=== PATIENT | male | born 1975 | race Caucasian/White ===

== ENCOUNTER 2017-08-07 15:29 | Emergency (ER) | payer SELFPAY ==
[2017-08-07] MEDS ORDERED: DILTIAZEM 5 MG/ML 5ML IVPUSH IVP ONE ×2 (15:45→16:20)
[2017-08-07] MEDS ORDERED: DILTIAZEM HCL* 100 MG ADDVIAL 100 MG in NS(*) 0.9% 100 ML ADDVANT BAG 100 ML IV SCH (15:45)
--- NOTE | 2017-08-07 15:48 | EKG ---
[place] [facility] [place] BRYCE LINDSEY : [id number] MR: [id number] V: [id number] EXAM DATE: ORDERING PHYSICIAN: NICHOLE NICOLE TECHNOLOGIST: BENJI Simms Reason : TACHYCARDIA Blood Pressure : / mmHG Vent. Rate : 160 BPM Atrial Rate : 153 BPM P-R Int : 000 ms QRS Dur : 070 ms QT Int : 294 ms P-R-T Axes : 000 042 062 degrees QTc Int : 479 ms Supraventricular tachycardia Nonspecific ST and T wave abnormality Abnormal ECG No previous ECGs available Confirmed by NICOLE BALTAZAR ([id number]) on 08/07/2017 6:56:31 PM Referred By: Confirmed By:NICOLE BALTAZAR
[2017-08-07] MEDS ORDERED: NS(*) 0.9% 1000 ML BAG 1,000 ML IV ONE (15:50)
[2017-08-07 16:00] LABS: PLATELET COUNT, AUTOMATED 196 K/uL (150-450)
--- NOTE | 2017-08-07 16:01 | ER Report ---
History and Physical Time Seen By MD: 15:35 Hx. of Stated Complaint: PT FEELS HEART FLUTETRING, PRESSURE IN CHEST, TROUBLE CATCHING BREATH (NICHOLE NICOLE DO) HPI/ROS CHIEF COMPLAINT: I am back in afib HISTORY OF PRESENT ILLNESS: PT has long hx of afib > 20 years. PT has had 2 ablations, last being 8 years ago. Pt stopped his atenolol 6 months ago and states he has gone into afib 3 times. Pt has been able convert himself in the past but can not convert this time. Pt felt himself go into a rapid afib around 7pm and has been in it ever since. Pt c/o of feeling sob with chest pressure with the rapid heart rate. Pt is from [employer] and is here visiting/ working for few months. PT does admit to a a few drinks "may be 4 or so" last night with the start of the afib. REVIEW OF SYSTEMS: Constitutional: No fever, no chills. Eyes: No discharge. ENT: No sore throat. Cardiovascular: + chest pain, + palpitations. Respiratory: No cough, no shortness of breath. Gastrointestinal: No abdominal pain, no vomiting. Genitourinary: No hematuria. Musculoskeletal: No back pain. Skin: No rashes. Neurological: No headache. (NICHOLE NICOLE DO) Allergies: Coded Allergies: No Known Drug Allergies (Unverified , 08/07/17) Home Meds Active Scripts Atenolol (ATENOLOL) 50 Mg Tablet, 1 TAB PO QDAY, #90 TAB Prov:NICHOLE NICOLE DO 08/07/17 Past Medical/Surgical History pmhx: afib, htn cad Pshx: cardiac ablation (NICHOLE NICOLE DO) Reviewed Nurses Notes: Yes Old Medical Records Reviewed: No (NICHOLE NICOLE DO) Smoking Status: Current: Some Days Smoker Hx Alcohol Use: Yes (socially) (NICHOLE NICOLE DO) Constitutional Vital Sign - Last 24 Hours 08/07/17 08/07/17 08/07/17 08/07/17 15:29 15:32 15:33 15:33 Temp 98.9 Pulse ??? 95 Resp 18 B/P (MAP) 135/117 (123) 135/117 127/92 (104) Pulse Ox 95 O2 Delivery Room Air 08/07/17 08/07/17 08/07/17 08/07/17 15:34 15:39 15:44 15:54 Pulse 86 156 111 Resp 18 22 25 B/P (MAP) 145/126 (132) 126/97 (107) Pulse Ox 95 97 94 08/07/17 08/07/17 08/07/17 08/07/17 15:59 16:00 16:04 16:09 Pulse 82 101 83 Resp 12 19 14 B/P (MAP) 133/89 (104) 139/87 (104) 124/83 (97) Pulse Ox 95 95 94 08/07/17 08/07/17 08/07/17 08/07/17 16:10 16:14 16:19 16:20 Pulse 96 81 Resp 20 11 B/P (MAP) 133/81 (98) 119/88 (98) Pulse Ox 92 94 08/07/17 08/07/17 08/07/17 08/07/17 16:24 16:25 16:29 16:30 Pulse 109 83 Resp 16 14 B/P (MAP) 108/83 (91) 132/94 (107) Pulse Ox 95 93 08/07/17 08/07/17 08/07/17 08/07/17 16:34 16:39 16:40 16:44 Pulse 81 87 92 Resp 10 12 15 B/P (MAP) ???/??? (6093) Pulse Ox 96 95 96 08/07/17 08/07/17 08/07/17 08/07/17 16:49 16:50 16:54 16:59 Pulse 77 78 80 Resp 8 14 11 B/P (MAP) 135/96 (109) Pulse Ox 94 96 95 08/07/17 08/07/17 08/07/17 08/07/17 17:00 17:04 17:09 17:14 Pulse 78 72 66 Resp 9 18 21 B/P (MAP) 132/97 (109) Pulse Ox 94 96 95 08/07/17 08/07/17 08/07/17 08/07/17 17:20 17:29 17:30 17:40 Pulse 72 Resp 14 B/P (MAP) 133/96 (108) 133/92 (106) 145/98 (114) Pulse Ox 95 08/07/17 08/07/17 08/07/17 08/07/17 17:44 17:50 17:56 17:59 Pulse 76 75 Resp 14 14 B/P (MAP) ???/??? (1665) 134/97 (109) Pulse Ox 96 95 08/07/17 08/07/17 08/07/17 08/07/17 18:00 18:08 18:10 18:14 Pulse 69 Resp 15 B/P (MAP) 139/93 (108) 127/94 (105) 129/90 (103) Pulse Ox 96 08/07/17 08/07/17 08/07/17 08/07/17 18:20 18:25 18:30 18:40 Pulse 62 ??? Resp 10 15 B/P (MAP) 129/95 (106) 128/99 (109) Pulse Ox 93 93 08/07/17 18:52 Temp 97.2 Intake and Output 08/07/17 08/07/17 08/08/17 15:00 23:00 07:00 Intake Total 2030 ml Balance 2030 ml (ALISON SMITH MD) Physical Exam General Appearance: The patient is alert, has no immediate need for airway protection and no signs of toxicity. Eyes: Pupils equal and round no pallor or injection, EOMI ENT: no pharyngeal erythema or exudates, Mucous membranes are moist Respiratory: There are no retractions, lungs are clear to auscultation. Cardiovascular: irregular rate and rhythm. pulses are equal and symmetrical Gastrointestinal: Abdomen is soft and non tender, no masses, bowel sounds normal, no guarding, no rigidity or rebound Neurological: Cranial nerves II-XII grossly intact, no sensory or motor loss Skin: Warm and dry, no rashes. Musculoskeletal: Neck is supple non tender, no vertebral tenderness Extremities are nontender, non swollen and have full range of motion. DIFFERENTIAL DIAGNOSIS: After history and physical exam differential diagnosis was considered for electrolyte abnl, dehydration, medication non compliance, acs (LAURORA,NICHOLE V DO) Medical Decision Making Data Points Result Diagram: 08/07/17 1543 08/07/17 1543 Laboratory Hematology Test 08/07/17 15:43 Red Blood Count 5.75 M/uL (4.00-5.60) Mean Corpuscular Volume 91.9 fL (80.0-96.0) Mean Corpuscular Hemoglobin 33.2 pg (26.0-33.0) Mean Corpuscular Hemoglobin Concent 36.1 g/dL (32.0-36.0) Red Cell Distribution Width 12.6 % (11.5-14.5) Mean Platelet Volume 9.6 fL (7.2-11.1) Neutrophils (%) (Auto) 56.2 % (39.4-72.5) Lymphocytes (%) (Auto) 31.8 % (17.6-49.6) Monocytes (%) (Auto) 9.8 % (4.1-12.4) Eosinophils (%) (Auto) 1.6 % (0.4-6.7) Basophils (%) (Auto) 0.6 % (0.3-1.4) Nucleated RBC Relative Count (auto) 0.3 /100WBC Neutrophils # (Auto) 4.5 K/uL (2.0-7.4) Lymphocytes # (Auto) 2.5 K/uL (1.3-3.6) Monocytes # (Auto) 0.8 K/uL (0.3-1.0) Eosinophils # (Auto) 0.1 K/uL (0.0-0.5) Basophils # (Auto) 0.1 K/uL (0.0-0.1) Nucleated RBC Absolute Count (auto) 0.03 K/uL Prothrombin Time 14.1 seconds (12.0-14.4) Prothromb Time International Ratio 1.08 Activated Partial Thromboplast Time 27 seconds (23-35) Sodium Level 142 mmol/L (137-145) Potassium Level 3.4 mmol/L (3.5-5.0) Chloride Level 105 mmol/L (98-107) Carbon Dioxide Level 18 mmol/L (22-30) Blood Urea Nitrogen 9 mg/dl (9-21) Creatinine 1.30 mg/dl (0.66-1.25) Glomerular Filtration Rate Calc > 60.0 Random Glucose 120 mg/dl (75-110) Calcium Level 9.2 mg/dl (8.4-10.2) Magnesium Level 1.8 mg/dl (1.7-2.2) Total Bilirubin 2.6 mg/dl (0.2-1.3) Aspartate Amino Transf (AST/SGOT) 55 U/L (0-35) Alanine Aminotransferase (ALT/SGPT) 94 U/L (0-56) Alkaline Phosphatase 71 U/L (0-126) Troponin I < 0.012 ng/ml Total Protein 7.8 gm/dl (6.3-8.2) Albumin 4.4 g/dl (3.5-5.0) Chemistry Test 08/07/17 15:43 White Blood Count 7.9 k/uL (4.5-11.0) Red Blood Count 5.75 M/uL (4.00-5.60) Hemoglobin 19.1 g/dL (14.0-18.0) Hematocrit 52.8 % (42.0-52.0) Mean Corpuscular Volume 91.9 fL (80.0-96.0) Mean Corpuscular Hemoglobin 33.2 pg (26.0-33.0) Mean Corpuscular Hemoglobin Concent 36.1 g/dL (32.0-36.0) Red Cell Distribution Width 12.6 % (11.5-14.5) Platelet Count 196 K/uL (150-450) Mean Platelet Volume 9.6 fL (7.2-11.1) Neutrophils (%) (Auto) 56.2 % (39.4-72.5) Lymphocytes (%) (Auto) 31.8 % (17.6-49.6) Monocytes (%) (Auto) 9.8 % (4.1-12.4) Eosinophils (%) (Auto) 1.6 % (0.4-6.7) Basophils (%) (Auto) 0.6 % (0.3-1.4) Nucleated RBC Relative Count (auto) 0.3 /100WBC Neutrophils # (Auto) 4.5 K/uL (2.0-7.4) Lymphocytes # (Auto) 2.5 K/uL (1.3-3.6) Monocytes # (Auto) 0.8 K/uL (0.3-1.0) Eosinophils # (Auto) 0.1 K/uL (0.0-0.5) Basophils # (Auto) 0.1 K/uL (0.0-0.1) Nucleated RBC Absolute Count (auto) 0.03 K/uL Prothrombin Time 14.1 seconds (12.0-14.4) Prothromb Time International Ratio 1.08 Activated Partial Thromboplast Time 27 seconds (23-35) Glomerular Filtration Rate Calc > 60.0 Calcium Level 9.2 mg/dl (8.4-10.2) Magnesium Level 1.8 mg/dl (1.7-2.2) Total Bilirubin 2.6 mg/dl (0.2-1.3) Aspartate Amino Transf (AST/SGOT) 55 U/L (0-35) Alanine Aminotransferase (ALT/SGPT) 94 U/L (0-56) Alkaline Phosphatase 71 U/L (0-126) Troponin I < 0.012 ng/ml Total Protein 7.8 gm/dl (6.3-8.2) Albumin 4.4 g/dl (3.5-5.0) Coagulation Test 08/07/17 15:43 Prothrombin Time 14.1 seconds Prothromb Time International Ratio 1.08 Activated Partial Thromboplast Time 27 seconds (ALISON SMITH MD) EKG/Imaging EKG Interpretation afib/flutter @ 160 (NICHOLE NICOLE DO) EKG Interpretation 12 lead EKG: Rhythm: Sinus bradycardia rate 55 [place]: normal QRS: normal ST segments: normal (ALISON SMITH MD) ED Course/Re-evaluation Clinical Indication for ER IV: Hydration, IV Access ED Course Will start on cardizem drip in ED with hopes of pt converting on his own. Will start with 1/2 dose bolus .125mg due to pts blood pressure and if tolerates will give the second half. Drip to be started. 08/07/2017 4:14:39 pm Pt on drip. Blood pressure in holding and rate is down to 99-120 will give second dose of bolus. 08/07/2017 4:31:20 pm Pt heart rate down to 88-98 but still irregular. PT does not want to be admitted. Will replace his potassium. Will continue on drip and continue to monitor. 08/07/2017 5:08:58 pm Pts heart rate is no longer tachy but still in afib. cxr is stable. PT is dehydrated by labs so second liter of fluid hanging. 08/07/2017 5:50:55 pm Pts heart rate down in 70s but still has not converted. PTs symptoms have resolved no longer sob or cp since the heart rate went down to normal . Pt does not want to be admitted. PT does not have insurance. States he will fill a script for atenolol 50mg (his prior dose) if we supply him a script. Discussed my concern for possible stroke since not on any blood thinners but pt states that he is avoiding coumadin or its counter parts. Pt is willing to take a full asa. Will give a dose of pts atenolol now and monitor. Critical Care Time I spent a total of 30 minutes of critical care time in obtaining history, performing a physical exam, bedside monitoring of interventions, collecting and interpreting tests and discussion with consultants but not including time spent performing procedures. (NICHOLE NICOLE DO) ED Course After the Cardizem drip, the patient is back in a normal sinus rhythm, sometimes sinus bradycardia. He is scheduled to begin atenolol 50 mg once a day again which she has been on in the past. Also started a full dose aspirin again. Decision to Disposition Date: Aug 07, 2017 Decision to Disposition Time: 18:38 (ALISON SMITH MD) Depart Departure Latest Vital Signs Vital Signs Date Time Temp Pulse Resp B/P (MAP) Pulse Ox O2 Delivery O2 Flow Rate FiO2 08/07/17 18:52 97.2 08/07/17 18:40 ??? 15 93 08/07/17 18:30 128/99 (109) 08/07/17 15:33 Room Air (ALISON SMITH MD) Impression: Primary Impression: Hypokalemia Additional Impressions: Atrial fibrillation with rapid ventricular response Dehydration Condition: Improved Disposition: HOME OR SELF-CARE Referrals: EVERETT ERNANDEZ MD, TODD MD New Scripts Atenolol (ATENOLOL) 50 Mg Tablet 1 TAB PO QDAY, #90 TAB Prov: KATIELIZNICHOLE DO 08/07/17 Patient Instructions: A-fib (Atrial Fibrillation) (GEN) Additional Instructions: You are in an irregular rhythm. Recommend you follow up with cardiology. If you decide to stay local I have provided you with a name of photography colorist for either [place] or [place]. You should restart your atenolol 50mg daily. You need to take a daily aspirin 325mg. You are at risk for stroke so it is important you follow up. Please return to emergency department if you have any concerns. Problem Qualifiers NICHOLE NICOLE DO Aug 07, 2017 16:00 ALISON SMITH MD Aug 07, 2017 18:22
[2017-08-07 16:10] LABS: INR 1.08
[2017-08-07] MEDS ORDERED: POTASSIUM CHL PWDR 20 MEQ PKT PO ONE (16:20)
[2017-08-07] MEDS ORDERED: LR(*) 1000 ML BAG 1,000 ML IV ONE (16:35)
[2017-08-07] MEDS ORDERED: MAGNESIUM SUL/D5W* 1 GM/100 ML 100 ML IVPB ONE (16:50)
[2017-08-07] MEDS ORDERED: ASPIRIN 325 MG TAB PO ONE (16:55)
--- NOTE | 2017-08-07 17:01 | RADIOLOGY IMAGING REPORT ---
[place] [facility] [place]: Erik Mccann : 1975 MR: [id number] V: [id number] EXAM DATE: ORDERING PHYSICIAN: NICHOLE NICOLE TECHNOLOGIST: Location: [facility] Patient: Erik Mccann : 1975 Visit/Account:[id number] Date of Sevice: 08/07/2017 Examination: CHEST SINGLE AP Comparison: None. History: Shortness of breath and chest pain. Findings: No consolidation, nodule, or peribronchial inflammation. No pneumothorax, edema, or effusio n. Cardiac and hilar contour size is within normal limits. Osseous structures are intact. IMPRESSION: Negative chest. Report Dictated By: Bartolo Root MD at 08/07/2017 4:56 PM Report E-Signed By: Bartolo Root MD at 08/07/2017 4:57 PM WSN:[id number]
[2017-08-07] MEDS ORDERED: ATEN-1 PO (17:56)
[2017-08-07] MEDS ORDERED: ATENOLOL 50 MG TAB PO ONE (18:00)
--- NOTE | 2017-08-07 18:24 | EKG ---
FACILITY: [facility] - [place] PATIENT NAME: BRYCE LINDSEY : [id number] MR: [id number] V: [id number] EXAM DATE: ORDERING PHYSICIAN: NICHOLE NICOLE TECHNOLOGIST: BENJI Simms Reason : REPEAT Blood Pressure : / mmHG Vent. Rate : 055 BPM Atrial Rate : 055 BPM P-R Int : 192 ms QRS Dur : 074 ms QT Int : 404 ms P-R-T Axes : 013 018 032 degrees QTc Int : 386 ms Sinus bradycardia Otherwise normal ECG When compared with ECG of 07-AUG-2017 15:35, Vent. rate has decreased BY [address] no longer elevated in Inferior leads Nonspecific T wave abnormality, improved in Lateral leads Confirmed by NICOLE BALTAZAR ([id number]) on 08/07/2017 6:56:24 PM Referred By: Confirmed By:NICOLE BALTAZAR
[2017-08-07 18:30] VITALS: BP 128/99
== END 2017-08-07 18:53 | disposition home or self-care (01) ==
LOC: ER 15:40
DX: E87.6 Hypokalemia (principal); I48.91 Unspecified atrial fibrillation; E86.0 Dehydration
CPT/HCPCS: 71045; 83735; 84484; 85025; 85610; 85730; 93005; 96365; 96366; 96368; 96375; 96376; 99291; J3475; J3490; J7030; J7050; J7120; 82040; 82247; 82310; 82374; 82435; 82565; 82947; 84075; 84132; 84155; 84295; 84450; 84460; 84520; 99284

== ENCOUNTER → 2017-09-29 | Outpatient (REF) | payer SELFPAY ==
[~2017-09-29] MED LIST: ATEN-1 PO
[2017-09-29 15:17] LABS: PLATELET COUNT, AUTOMATED 148 K/uL (150-450)
== END ==
PROVIDERS: ATTEND Nurse Practitioner Family
DX: R06.02 Shortness of breath (principal)
CPT/HCPCS: 82040; 82247; 82310; 82374; 82435; 82565; 82947; 84075; 84132; 84155; 84295; 84450; 84460; 84520; 85025; 85379

== ENCOUNTER 2018-02-21 19:28 | Inpatient (IN) | payer SELFPAY ==
[~2018-02-21] VITALS: Ht 188 cm; Wt 115.7 kg
[~2018-02-21 19:28] MED LIST changes: -WARF5TAB23 PO
--- NOTE | 2018-02-21 19:33 | ER Report ---
History and Physical Time Seen By MD: 19:33 HPI/ROS CHIEF COMPLAINT: atrial fibrillation HISTORY OF PRESENT ILLNESS: This is a 42 year old male. He was incarcerated recently for outstanding warrant in [place]. He has a history of intermittent at rial fibrillation. He has had cardioversions in the past and has been admitted on cardizem as well. Has felt heart skipping this afternoon, but unsure how long he has been in this rhythm. He has no chest pain or shortness of breath with this. He has no recent illnesses. No use of blood thinners at this time, and has had a TIA in the past. He has used marijuana last week, but denies other drug use. No caffeine or other stimulants at this time REVIEW OF SYSTEMS: Constitutional: No fever or chills. Eyes: No vision changes. ENT: No sore throat. No congestion. Cardiovascular: As above. Respiratory: No cough. Gastrointestinal: No abdominal pain. No nausea or vomiting. Genitourinary: No dysuria. Musculoskeletal: No pain. Skin: No rashes. Neurological: No numbness. No weakness. Allergies: Coded Allergies: No Known Drug Allergies (Unverified , 02/21/18) Home Meds Discontinued Scripts Atenolol (ATENOLOL) 50 Mg Tablet, 1 TAB PO QDAY, #90 TAB Prov:KATIELIZNICHOLESA Suresh VUONG 08/07/17 Reviewed Nurses Notes: Yes Smoking Status: Current: Some Days Smoker Hx Substance Use Disorder: No (WEED) Hx Alcohol Use: Yes (socially) Constitutional Vital Sign - Last 24 Hours 02/21/18 02/21/18 02/21/18 02/21/18 19:40 19:41 19:45 20:00 Temp 98.0 Pulse 151 88 142 Resp 20 14 13 B/P (MAP) 119/99 (106) 119/99 119/103 (108) Pulse Ox 95 96 02/21/18 02/21/18 02/21/18 02/21/18 20:15 20:30 20:45 21:00 Pulse 170 154 127 90 Resp 23 11 12 15 B/P (MAP) 135/97 (110) Pulse Ox 94 92 02/21/18 02/21/18 02/21/18 02/21/18 21:15 21:30 21:45 22:00 Pulse 85 101 123 111 Resp 12 15 20 B/P (MAP) 139/88 (105) Pulse Ox 93 93 94 94 02/21/18 02/21/18 02/21/18 02/21/18 22:15 22:30 22:45 23:02 Pulse 124 106 87 Resp 19 13 16 B/P (MAP) 113/91 (98) 97/77 (84) Pulse Ox 93 91 92 02/21/18 23:15 Pulse 89 Resp 19 Pulse Ox 93 Intake and Output 02/21/18 02/21/18 02/22/18 14:59 22:59 06:59 Intake Total 1000 ml Balance 1000 ml Physical Exam General Appearance: The patient is alert. No acute distress. Eyes: Pupils are equal, round. No pallor, injection or icterus. ENT: Mucous membranes are moist. Normal oral mucosa. Posterior oropharynx is normal. Neck: Supple and non tender. Respiratory: Lungs are clear to auscultation. Cardiovascular: Irregular rhythm and rapid rate. No carotid bruits. No murmurs. Gastrointestinal: Abdomen is soft and non tender. Nondistended. Normal active bowel sounds. Neurological: Alert and oriented x3. No focal neurologic deficits Skin: Warm and dry. Musculoskeletal: Extremities are nontender. No tenderness in palpation of the cervical, thoracic and lumbar spine. DIFFERENTIAL DIAGNOSIS: After history and physical exam, differential diagnosis was considered for atrial fibrillation with rapid ventricular rate. Medical Decision Making Data Points Result Diagram: 02/21/18192902/21/181929 Laboratory Hematology Test 02/21/18 19:30 Red Blood Count 5.56 M/uL (4.00-5.60) Mean Corpuscular Volume 96.2 fL (80.0-96.0) Mean Corpuscular Hemoglobin 33.9 pg (26.0-33.0) Mean Corpuscular Hemoglobin Concent 35.2 g/dL (32.0-36.0) Red Cell Distribution Width 12.1 % (11.5-14.5) Mean Platelet Volume 9.7 fL (7.2-11.1) Neutrophils (%) (Auto) 60.6 % (39.4-72.5) Lymphocytes (%) (Auto) 27.2 % (17.6-49.6) Monocytes (%) (Auto) 11.1 % (4.1-12.4) Eosinophils (%) (Auto) 0.7 % (0.4-6.7) Basophils (%) (Auto) 0.4 % (0.3-1.4) Nucleated RBC Relative Count (auto) 0.1 /100WBC Neutrophils # (Auto) 6.3 K/uL (2.0-7.4) Lymphocytes # (Auto) 2.8 K/uL (1.3-3.6) Monocytes # (Auto) 1.1 K/uL (0.3-1.0) Eosinophils # (Auto) 0.1 K/uL (0.0-0.5) Basophils # (Auto) 0.0 K/uL (0.0-0.1) Nucleated RBC Absolute Count (auto) 0.01 K/uL D-Dimer Quantitative (PE/DVT) < 0.27 ug/ml (0-0.50) Sodium Level 138 mmol/L (137-145) Potassium Level 3.5 mmol/L (3.5-5.0) Chloride Level 103 mmol/L (98-107) Carbon Dioxide Level 22 mmol/L (22-30) Blood Urea Nitrogen 12 mg/dl (9-21) Creatinine 1.00 mg/dl (0.66-1.25) Glomerular Filtration Rate Calc > 60.0 Random Glucose 95 mg/dl (75-110) Calcium Level 9.4 mg/dl (8.4-10.2) Total Bilirubin 1.6 mg/dl (0.2-1.3) Aspartate Amino Transf (AST/SGOT) 59 U/L (0-35) Alanine Aminotransferase (ALT/SGPT) 101 U/L (0-56) Alkaline Phosphatase 53 U/L (0-126) Total Protein 7.9 g/dl (6.3-8.2) Albumin 4.5 g/dl (3.5-5.0) Chemistry Test 02/21/18 19:30 White Blood Count 10.4 k/uL (4.5-11.0) Red Blood Count 5.56 M/uL (4.00-5.60) Hemoglobin 18.8 g/dL (14.0-18.0) Hematocrit 53.4 % (42.0-52.0) Mean Corpuscular Volume 96.2 fL (80.0-96.0) Mean Corpuscular Hemoglobin 33.9 pg (26.0-33.0) Mean Corpuscular Hemoglobin Concent 35.2 g/dL (32.0-36.0) Red Cell Distribution Width 12.1 % (11.5-14.5) Platelet Count 208 K/uL (150-450) Mean Platelet Volume 9.7 fL (7.2-11.1) Neutrophils (%) (Auto) 60.6 % (39.4-72.5) Lymphocytes (%) (Auto) 27.2 % (17.6-49.6) Monocytes (%) (Auto) 11.1 % (4.1-12.4) Eosinophils (%) (Auto) 0.7 % (0.4-6.7) Basophils (%) (Auto) 0.4 % (0.3-1.4) Nucleated RBC Relative Count (auto) 0.1 /100WBC Neutrophils # (Auto) 6.3 K/uL (2.0-7.4) Lymphocytes # (Auto) 2.8 K/uL (1.3-3.6) Monocytes # (Auto) 1.1 K/uL (0.3-1.0) Eosinophils # (Auto) 0.1 K/uL (0.0-0.5) Basophils # (Auto) 0.0 K/uL (0.0-0.1) Nucleated RBC Absolute Count (auto) 0.01 K/uL D-Dimer Quantitative (PE/DVT) < 0.27 ug/ml (0-0.50) Glomerular Filtration Rate Calc > 60.0 Calcium Level 9.4 mg/dl (8.4-10.2) Total Bilirubin 1.6 mg/dl (0.2-1.3) Aspartate Amino Transf (AST/SGOT) 59 U/L (0-35) Alanine Aminotransferase (ALT/SGPT) 101 U/L (0-56) Alkaline Phosphatase 53 U/L (0-126) Total Protein 7.9 g/dl (6.3-8.2) Albumin 4.5 g/dl (3.5-5.0) Coagulation Test 02/21/18 19:30 D-Dimer Quantitative (PE/DVT) < 0.27 ug/ml EKG/Imaging EKG Interpretation 12 lead EKG: Rhythm: Atrial fibrillation with rapid ventricular response, rate 151 [place]: normal QRS: normal ST segments: Nonspecific Imaging Study: Single portable view of the chest. Indication: Atrial fibrillation Comparison study: August 07, 2017 Technique: Single AP view of the chest demonstrates no evidence of acute infiltrate. There is no evidence of pleural effusion or pneumothorax. The mediastinal, cardiac, and diaphragmatic contours are unremarkable. IMPRESSION: Unremarkable chest. Report Dictated By: Danilo Avery at 02/21/2018 8:26 PM ED Course/Re-evaluation Clinical Indication for ER IV: Hydration, IV Access ED Course Initial bolus of 25mg of Diltiazem, without change. Started Diltiazem drip and titrated up to 20mg/hr with some slowing, but not enough. Still without major symptoms. Discussed with Dr. Choi and recommended admission for further treatment. Decision to Disposition Date: Feb 21, 2018 Decision to Disposition Time: 23:02 Depart Departure Latest Vital Signs Vital Signs Date Time Temp Pulse Resp B/P (MAP) Pulse Ox O2 Delivery O2 Flow Rate FiO2 02/21/18 23:15 89 19 93 02/21/18 23:02 97/77 (84) 02/21/18 19:41 98.0 Impression: Primary Impression: Atrial fibrillation with rapid ventricular response Condition: Condition Unchanged Disposition: Admitted from ER New Scripts No Active Prescriptions or Reported Meds ALISON SMITH MD Feb 21, 2018 19:33
[2018-02-21] MEDS ORDERED: NS(*) 0.9% 1000 ML BAG 1,000 ML IV ONE (19:55)
[2018-02-21] MEDS ORDERED: DILTIAZEM 5 MG/ML 5ML IVPUSH IVP ONE (19:55)
[2018-02-21 20:09] LABS: PLATELET COUNT, AUTOMATED 208 K/uL (150-450)
--- NOTE | 2018-02-21 20:30 | RADIOLOGY IMAGING REPORT ---
FACILITY: [facility] - [place] PATIENT NAME: Erik Mccann : 1975 MR: [id number] V: [id number] EXAM DATE: ORDERING PHYSICIAN: ALISON SMITH TECHNOLOGIST: Location: [facility] Patient: Erik Mccann : 1975 Visit/Account:[id number] Date of Sevice: 02/21/2018 Study: Single portable view of the chest. Indication: Atrial fibrillation Comparison study: August 07, 2017 Technique: Single AP view of the chest demonstrates no evidence of acute infiltrate. There is no evid ence of pleural effusion or pneumothorax. The mediastinal, cardiac, and diaphragmatic contours are un remarkable. IMPRESSION: Unremarkable chest. Report Dictated By: Danilo Avery at 02/21/2018 8:26 PM Report E-Signed By: Danilo Avery at 02/21/2018 8:26 PM WSN:[id number]
[2018-02-21] MEDS: DILTIAZEM HCL* 100 MG ADDVIAL 100 MG in NS(*) 0.9% 100 ML ADDVANT BAG 100 ML IV SCH (21:58)
--- NOTE | 2018-02-21 22:03 | EKG ---
FACILITY: [facility] PATIENT NAME: BRYCE LINDSEY : [id number] MR: [id number] V: [id number] EXAM DATE: ORDERING PHYSICIAN: ALISON SMITH TECHNOLOGIST: MARKO Test Reason : CP Blood Pressure : / mmHG Vent. Rate : 151 BPM Atrial Rate : 150 BPM P-R Int : 000 ms QRS Dur : 072 ms QT Int : 258 ms P-R-T Axes : 000 070 244 degrees QTc Int : 408 ms Atrial fibrillation with rapid ventricular response Nonspecific ST findings Abnormal ECG Confirmed by KRISTEN ARAGON ([id number]) on 02/22/2018 5:41:41 AM Referred By: Confirmed By:KRISTEN ARAGON
[2018-02-21 23:44] VITALS: BP 115/74
[2018-02-22] VITALS (13 sets, daily range): BP systolic 94–142; BP diastolic 66–95; Ht 188 cm; Wt 115.7 kg
[2018-02-22] MEDS ORDERED: DIGOXIN 0.5 MG/2 ML AMP IVP ONE ×2 (00:15→08:25)
[2018-02-22] MEDS ORDERED: NS(*) 0.9% 1000 ML BAG 1,000 ML IV PRN ×2 (00:15→07:48)
[2018-02-22] MEDS ORDERED: ACETAMINOPHEN 325 MG TAB PO PRN (00:15)
[2018-02-22] MEDS ORDERED: INFLUENZA VIRUS VAC 0.5ML SYR IM ONLY ONE (00:15)
--- NOTE | 2018-02-22 00:38 | History & Physical ---
History of Present Illness Chief Complaint Heart racing History of Present Illness 42yo male with PMHx significant for recurrent atrial fibrillation. He states he began having episodes of a-fib with RVR in his mid-20s. He has been hospitalized on multiple occasions with it. He has even had two attempts at ablation, which were unsuccessful. He reports he can usually feel when he goes into a-fib, but is uncertain exactly when this episode began. He denies any CP or significant dyspnea, but is aware of palpitations. He denies any focal neurologic complaints. He did state he had a "TIA" associated with one of his episodes several years ago. He is not currently on any medications for rate control or anticoagulation as an outpatient. He is incarcerated at [facility] at this time. History Problems: (1) CHRONIC ATRIAL FIBRILLATION Status: Chronic (2) Status post ablation of atrial fibrillation Status: Resolved (3) HTN (hypertension) Status: Chronic Home Meds Discontinued Scripts Atenolol (ATENOLOL) 50 Mg Tablet, 1 TAB PO QDAY, #90 TAB Prov:COREYNICHOLE Suresh VUONG 08/07/17 Allergies: Coded Allergies: No Known Drug Allergies (Unverified , 02/21/18) Other Social/Family Hx Mother and father medical history is unknown. Hx Smoking: Yes Smoking Status: Current: Some Days Smoker Hx Alcohol Use: Yes (socially) Review of Systems Cardiovascular: Palpitations; No Chest Pain Respiratory: No Shortness of Breath Exam Vital Signs Vital Signs Date Time Temp Pulse Resp B/P (MAP) Pulse Ox O2 Delivery O2 Flow Rate FiO2 02/21/18 23:44 97.9 79 16 115/74 (88) 93 Room Air General Appearance: Alert, Awake Neuro: No Gross deficits Neck: No Masses Cardiovascular: Other (Irregular slightly tachycardic no murmur noted) Respiratory: Clear to Auscultation Chest: No Tenderness GI: Abd Soft and Non-Tender : No CVA Tenderness Extremities: Warm, Perfused Integumentary: Skin Intact without Lesion / Mass Psych: Alert & Oriented X3 Medical Decision Making Data Points Result Diagram: 02/21/18192902/21/181929 Item Value Date Time Albumin 4.5 g/dl 02/21/181929 Total Protein 7.9 g/dl 02/21/181929 Troponin I < 0.012 ng/ml 02/21/181929 Alkaline Phosphatase 53 U/L 02/21/181929 Alanine Aminotransferase (ALT/SGPT) 101 U/L H 02/21/181929 Aspartate Amino Transf (AST/SGOT) 59 U/L H 02/21/181929 Total Bilirubin 1.6 mg/dl H 02/21/181929 Calcium Level 9.4 mg/dl 02/21/181929 D-Dimer Quantitative (PE/DVT) < 0.27 ug/ml 02/21/181929 Assessment and Plan Problems: (1) Atrial fibrillation with rapid ventricular response Status: Acute Assessment & Plan: He has had a rather long history of recurrent atrial fibrillation despite attempts at ablation. Will admit to medical telemetry floor for further evaluation and treatment. Will continue on IV diltiazem that was started in the ER and titrate as needed. Will also add digoxin for help with rate control. Start on Lovenox 1mg/kg SQ q12hrs. Check TSH and serial troponins. Will also check echocardiogram. He will almost certainly need to see cardiology as well. If he becomes unstable at all, will need to consider emergent cardioversion. Watch closely. Venous Thromboembolism Antithrombotics Is Pt On Any Antithrombotics?: Yes Exam Sepsis Risk: No Definite Risk KRISTEN ARAGON MD Feb 22, 2018 00:38
[2018-02-22] MEDS ORDERED: ENOXAPARIN 100 MG/ML SYR SC SCH (01:00)
[2018-02-22] MEDS: DILTIAZEM HCL* 100 MG ADDVIAL 100 MG in NS(*) 0.9% 100 ML ADDVANT BAG 100 ML IV SCH (02:13)
[2018-02-22] MEDS ORDERED: DILTIAZEM HCL* 100 MG ADDVIAL 100 MG in NS(*) 0.9% 100 ML ADDVANT BAG 100 ML IV SCH ×2 (02:55→06:35)
[2018-02-22] MEDS ORDERED: NS(*) 0.9% 500 ML BAG 500 ML IV ONE (07:50)
[2018-02-22 08:09] LABS: PLATELET COUNT, AUTOMATED 186 K/uL (150-450)
[2018-02-22] MEDS ORDERED: POTASSIUM CHL 20 MEQ TABCR PO ONE (09:00)
[2018-02-22] MEDS ORDERED: METOPROLOL TART 5 MG/5 ML VIAL IVP ONE (10:15)
[2018-02-22] MEDS ORDERED: ENOXAPARIN SC SCH (11:00)
--- NOTE | 2018-02-22 11:05 | EKG ---
[place] [facility] [place] BRYCE LINDSEY : [id number] MR: [id number] V: [id number] EXAM DATE: ORDERING PHYSICIAN: CHAPO STAFFORD TECHNOLOGIST: Test Reason : George to tachy Blood Pressure : / mmHG Vent. Rate : 065 BPM Atrial Rate : 065 BPM P-R Int : 160 ms QRS Dur : 074 ms QT Int : 386 ms P-R-T Axes : 032 063 060 degrees QTc Int : 401 ms Normal sinus rhythm Normal ECG When compared with ECG of 21-FEB-2018 19:46, Sinus rhythm has replaced Atrial fibrillation Vent. rate has decreased BY 86 BPM Criteria for Septal infarct are no longer present ST no longer depressed in Inferior leads T wave inversion no longer evident in Inferior leads Confirmed by Chapo Andujar ([id number]) on 02/22/2018 7:19:22 PM Referred By: Confirmed By:Chapo Stafford
[2018-02-22] MEDS ORDERED: WARFARIN SOD 5 MG TAB PO SCH (13:00)
--- NOTE | 2018-02-22 15:23 | Miscellaneous Provider Note ---
Miscellaneous Provider Note Note Stopped diltiazem in preparation for trying beta aye and digoxin. Patient apparently had BM and while straining converted to NSR. Will monitor and if stable may d/c tomorrow to [facility]. JOSE CLAYTON DO Feb 22, 2018 15:23
[2018-02-22] MEDS ORDERED: DIGOXIN 0.5 MG/2 ML AMP IVP SCH (17:00)
[2018-02-22] MEDS ORDERED: ATEN-1 PO (18:50)
--- NOTE | 2018-02-22 19:02 | Hospitalist Depart ---
Discharge Summary Reason for Hosp/Final Diag: (1) Atrial fibrillation with rapid ventricular response Status: Acute Hospital Course & Plan: He has had a rather long history of recurrent atrial fibrillation despite attempts at ablation. IV diltiazem that was started in the ER was continued. Digoxin added for help with rate control. TSH and serial troponins WNL. Echocardiogram with mild LV hypertrophy, otherwise normal. While transitioning from diltiazem to possible beta aye patient converted to NSR while having bowel movement. He maintained NSR for 8 hours before discharge with no medical intervention. Recommend restarting patients previously taken atenolol. Also recommend warfarin for paroxysmal afib, will need follow up INR in 2-3 days and management of medication. (2) Transaminitis Hospital Course & Plan: Mild transaminitis on previous visit and still on this admission. BIli fraction shows unconjugated hyperbilirubinemia, Iron study performed given elevated Hgb and liver dysfunction to evaluate for hemochromatosis. Iron sat 15% essentially rules out hemochromatosis. Would recommend hepatitis B and C screening given Hx of incarceration and persistent mild elevation. Departure Weight (Pounds): 255 Result Diagram: 02/22/18 0752 02/22/18 0752 Condition: Improved Discharge: Other Facility (discharged to law enforcement) Discharge Instructions Home Meds Discontinued Scripts Atenolol (ATENOLOL) 50 Mg Tablet, 1 TAB PO QDAY, #90 TAB Prov:NICHOLE NICOLE DO 08/07/17 Diet: Regular Activity: As Tolerated Venous Thromboembolism Antithrombotics Is Pt On Any Antithrombotics?: Yes JOSE CLAYTON DO Feb 22, 2018 19:02
[2018-02-22] MEDS ORDERED: WARF5TAB23 PO (19:33)
[2018-02-23] MEDS ORDERED: ATENOLOL 50 MG TAB PO SCH (09:00)
== END 2018-02-22 19:50 | DRG 310 ==
LOC: ER 19:40 → MED 23:28
PROVIDERS: ADMIT Internal Medicine; ATTEND Internal Medicine
DX: I48.0 Paroxysmal atrial fibrillation (principal); I10 Essential (primary) hypertension; F17.210 Nicotine dependence, cigarettes, uncomplicated; R74.0 Nonspecific elevation of levels of transaminase and lactic acid dehydrogenase [LDH]; Z86.73 Personal history of transient ischemic attack (TIA), and cerebral infarction without residual deficits
CPT/HCPCS: 36415; 71045; 82040; 82247; 82248; 82310; 82374; 82435; 82565; 82728; 82947; 83540; 83550; 84075; 84132; 84155; 84295; 84443; 84450; 84460; 84484; 84520; 85025; 85379; 93005; 93306; 96361; 96365; 96375; 99284; J1160; J1650; J3490; J7030; J7050

== ENCOUNTER → 2018-02-21 | Outpatient (CLI) | payer SELFPAY ==
[~2018-02-21] MED LIST changes: +WARF5TAB23 PO
[2018-02-22 17:03] VITALS: BMI 32.7
== END ==
LOC: AMB 19:10
PROVIDERS: ATTEND Nurse Practitioner
DX: R07.89 Other chest pain (principal); R00.0 Tachycardia, unspecified; I48.91 Unspecified atrial fibrillation; I10 Essential (primary) hypertension; R06.82 Tachypnea, not elsewhere classified
CPT/HCPCS: A0425; A0427